=== PATIENT | female | born 2000 | race Caucasian/White ===

== ENCOUNTER 2023-05-03 12:11 | Emergency (ER) | payer SELFPAY ==
[2023-05-03 12:18] VITALS: BP 139/79; PULSE 82; RESP 16; TEMP 36.7; O2SAT 100; BMI 28.3
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
== END 2023-05-03 13:59 | disposition home or self-care (01) ==
PROVIDERS: Emergency Provider Physician Assistant
DX: Z18.81 Retained glass fragments (principal)
CPT/HCPCS: 99281

== ENCOUNTER 2024-04-18 13:00 | Emergency (ER) | payer MEDICAID, SELFPAY ==
[2024-04-18 13:24] VITALS: BP 122/79; PULSE 68; RESP 16; TEMP 36.8; O2SAT 95; BMI 24.7
--- NOTE | 2024-04-18 13:50 | XR_ITS ---
WS: [id number] PORTABLE CHEST HISTORY: cough congestion COMPARISON: None available. Lungs are clear and well expanded. No pleural effusion or pneumothorax. Cardiac size: Normal. Mediastinum/Aorta: Normal mediastinum. No osseous abnormality seen. XR/XR chest 1V portable [id number] IMPRESSION: Unremarkable portable chest.
--- NOTE | 2024-04-18 13:51 | ED_ITS ---
HPI - URI/Sore Throat General: Chief Complaint: Upper Respiratory Infection Stated Complaint: sore throat congetion NV Time Seen by Provider: 04/18/24 13:23 Source: patient Mode of arrival: ambulatory Limitations: no limitations History of Present Illness: Patient is a 23-year-old female presents to ED today with a complaint of a productive cough, nasal drainage/congestion, sinus pain/pressure, and post- tussive vomiting. Patient states she has been ill for approximately a week. She feels like her cough is worsening. Reporting subjective, low-grade fevers. She is not having any abdominal pain, vomiting that is not post-tussive, or diarrhea. She arrives in no acute distress with stable vital signs. She is not having any chest pain, difficulty breathing, or hemoptysis. MD elicited complaint: cough, nasal congestion and sinus pain Onset (ago): week(s) Consistency: constant Severity: moderate Able to tolerate fluids by mouth: Yes Exacerbating factors: nothing Relieving factors: nothing Associated symptoms: Reports chills, fever(s) (subjective/low grade), nasal congestion, sinus pain and vomiting (post-tussive); Deny abdominal pain, chest pain, diarrhea, ear or mastoid pain, headache(s) or nausea Treatments prior to arrival: cold medicine Related Data Previous Rx's Medication Instructions Recorded dexamethasone 6 mg tablet 6 mg PO DAILY #6 tabs 04/18/24 Allergies Allergy/AdvReac Type Severity Reaction Status Date / Time No Known Allergies Allergy Verified 05/03/23 12:23 Review of Systems Const: Reports: fever(s) (subjective/low grade) and chills; Denies: body aches, fatigue or malaise Eyes: Denies: change in vision, blurry vision, eye discomfort or eye discharge ENMT: Reports: nasal discharge, nasal congestion and sinus pain; Denies: throat pain, odynophagia or ear or mastoid pain Card: Denies: chest pain Resp: Reports: productive cough and chest congestion; Denies: dyspnea, wheezing, pain on inspiration or hemoptysis GI: Reports: vomiting (post-tussive); Denies: abdominal pain, nausea, hematemesis, diarrhea or change in bowel habits : Denies: flank pain or dysuria Musc: Denies: neck pain, back pain, extremity pain, extremity swelling, joint pain or joint swelling Skin/Breast: Denies: rash Neuro: Denies: headache(s) or dizziness Physical Exam Const: COMMON NORMALS: no acute distress, average body habitus, patient oriented x3, no limitations, healthy appearing, alert and well nourished HENMT: COMMON NORMALS: Normal external nose present HEAD & SCALP: normal to inspection FACE & SINUS: sinus tenderness maxillary NOSE: Normal external nose present MOUTH: Normal oral and palatal mucosa present THROAT: posterior oropharynx normal Eye: GENERAL EYE: appearance normal, both eyes and all related structures Neck/C-Spine: COMMON NORMALS: no lymphadenopathy Resp: COMMON NORMALS: normal respiratory effort and clear to auscultation bilaterally AUSCULTATION: clear to auscultation bilaterally Cardio: COMMON NORMALS: regular rate and regular rhythm RATE: regular rate RHYTHM: regular rhythm Neuro: COMMON NORMALS: patient oriented x3 SENSORIUM/ORIENTATION: Yes alert Course Vital Signs: Vital signs: Vital Signs Temperature 98.2 F 04/18/24 13:24 Pulse Rate 68 04/18/24 13:24 Respiratory Rate 16 04/18/24 13:24 Blood Pressure 122/79 04/18/24 13:24 Pulse Oximetry 95 04/18/24 13:24 Oxygen Delivery Me thod Room Air 04/18/24 13:24 MDM - URI/Sore Throat Medical Decision Making Patient appears in no acute distress. Her vital signs are stable. CXR personal interpretation is unremarkable. This most likely is viral in etiology and antibiotics are not indicated. Discussed conservative therapies. She can continue OTC medications. Did discuss intranasal corticosteroid such as Flonase or Nasacort. Discussed the use of Afrin and the limitations on frequency of use. Place her on steroids. Respiratory panel collected and pending. Return ED precautions given. Differential Diagnosis Likely upper respiratory infection, sinusitis, viral infection and bronchitis Medical Records I reviewed the patient's medical records. XR interpretation done by ED provider, pending radiology final review Discharge Plan Discharge Patient Disposition: Home Clinical Impression: Bronchitis Sinusitis Qualifiers: Sinusitis location: maxillary Chronicity: acute Recurrence: non-recurrent Qualified Code(s): J01.00 - Acute maxillary sinusitis, unspecified Condition: Stable Prescriptions: New dexamethasone 6 mg tablet 6 mg PO DAILY Qty: 6 0RF Discharge Orders: Discharge ED (Routine); Ordered 04/18/24 Ordered By: Deloris Myles Referrals: Hever Rod MD [Primary Care Provider] - Coding Level of Care Code ED [employer] for [facility] [employer]
[2024-04-18 14:26] VITALS: BP 115/75; PULSE 78; O2SAT 98
[2024-04-18 15:52] LABS: Adenovirus Not Detected (NOT DETECT); Chlamydia Pneumoniae Not Detected (NOT DETECT); Coronavirus 229E,HKU1,NL63,OC4 Not Detected (NOT DETECT); Human Metapneumovirus Not Detected (NOT DETECT); Human Rhinovirus/Enterovirus Detected (NOT DETECT); Influenza A Not Detected (NOT DETECT); Influenza A H1 Not Detected (NOT DETECT); Influenza A H1-2009 Not Detected (NOT DETECT); Influenza A H3 Not Detected (NOT DETECT); Influenza B Not Detected (NOT DETECT); Mycoplasma Pneumoniae Not Detected (NOT DETECT); Parainfluenza Virus Type 1 Not Detected (NOT DETECT); Parainfluenza Virus Type 2 Not Detected (NOT DETECT); Parainfluenza Virus Type 3 Not Detected (NOT DETECT); Parainfluenza Virus Type 4 Not Detected (NOT DETECT); Respiratory Syncytial Virus A Not Detected (NOT DETECT); Respiratory Syncytial Virus B Not Detected (NOT DETECT); SARS-COV-2 Not Detected (NOT DETECT)
== END 2024-04-18 14:27 | disposition home or self-care (01) ==
PROVIDERS: Emergency Provider Physician Assistant; PCP Family Medicine
DX: J01.00 Acute maxillary sinusitis, unspecified (principal); J40 Bronchitis, not specified as acute or chronic
CPT/HCPCS: 71045; 87486; 87581; 87633; 99284